=== PATIENT | male | born 2000 | race Caucasian/White ===

== ENCOUNTER 2020-07-02 01:51 | Emergency (ER) | payer SELFPAY ==
[2020-07-02 02:02] VITALS: BP 134/46; PULSE 130
--- NOTE | 2020-07-02 02:07 | EDM.PDOC ---
ED HPI GENERAL MEDICAL PROBLEM - General Chief Complaint: Upper Extremity Injury/Pain Stated Complaint: MED.CLEARANCE Time Seen by Provider: 07/02/20 02:00 - History of Present Illness INITIAL COMMENTS - FREE TEXT/NARRATIVE: History of present illness: [] This alert cooperative white male is in police custody in handcuffs. He is here for medical clearance because of swelling and apparent injury to his right hand. He says he punched a door. He denies any other symptoms. Review of systems: As per history of present illness and below otherwise all systems reviewed and negative. Past medical history: As per history of present illness and as reviewed below otherwise noncontributory. Surgical history: As per history of present illness and as reviewed below otherwise noncontributory. Social history: No reported history of drug or alcohol abuse. Family history: As per history of present illness and as reviewed below otherwise noncontributory. Physical exam: Constitutional - well developed, well-nourished and in no acute distress HEENT - normocephalic, no evidence of trauma - external nose and mouth normal - no mass in neck and no JVD - mucosae moist EYES - full EOM, PERRL, no icterus - no evidence of inflammation, injection, or drainage Respiratory - no respiratory distress, equal bilateral expansion Musculoskeletal welling and tenderness about the dorsal hand especially at the level of the distal fifth metacarpal. No gross deformity of long bones or joints - no tenderness, swelling or edema Neurologic - Alert and oriented times four - CN II-XII grossly intact - motor sensory and coordination symmetrically normal Psychiatric - appropriate mood and affect with normal thought content Hematologic - No petechiae or purpura - mucosa appropriate color and sclera not pale - normal nail bed color and refill Integument -minimal abrasions over the dorsum of the second digit and knee distal metacarpal level of the right hand otherwise no rash or evidence of trauma - normal turgor Diagnostics: [] Therapeutics: [] Impression: [] Plan: [] Definitive disposition and diagnosis as appropriate pending reevaluation and review of above. - Related Data Allergies Allergy/AdvReac Type Severity Reaction Status Date / Time Penicillins Allergy Can't Verified 07/02/20 02:03 Remember Home Meds: Home Meds . [No Known Home Meds] 01/12/15 [History] Past Medical History - Past Health History Medical/Surgical History: Denies Medical/Surgical History Review of Systems - Review of Systems Review Of Systems: Comprehensive ROS is negative, except as noted in HPI. ED EXAM, GENERAL - Physical Exam Exam: See Below Free Text/Narrative:: Physical exam is in the HPI Course - Vital Signs Text/Narrative:: X-rays negative for fracture. There is soft tissue swelling. The patient is able to ambulate without difficulty and does not seem to be a fall risk. Discharged in satisfactory condition. Last Recorded V/S: Last Vital Signs Temp 36.5 C 07/02/20 01:55 Pulse 130 H 07/02/20 01:55 Resp 16 07/02/20 01:55 BP 134/46 L 07/02/20 01:55 Pulse Ox 97 07/02/20 01:55 - Orders/Labs/Meds Orders: Active Orders 24 hr Category Date Time Status Hand Comp Min 3V Rt [CR] Stat Exams 07/02/20 02:04 Taken Departure - Departure Time of Disposition: 02:27 Disposition: Home, Self-Care 01 Condition: Good Clinical Impression: Contusion of right hand, initial encounter - Discharge Information Instructions: Hand Contusion Referrals: PCP,None [Primary Care Provider] - Forms: ED Department Discharge Additional Instructions: Rest ice elevate [facility] - Primary Care [address] [place] [address] [facility] [address] [place] [address] The following information is given to patients seen in the emergency department who are being discharged to home. This information is to outline your options for follow-up care. We provide all patients seen in our emergency department with a follow-up referral. The need for follow-up, as well as the timing and circumstances, are variable depending upon the specifics of your emergency department visit. If you don't have a primary care physician on staff, we will provide you with a referral. We always advise you to contact your personal physician following an emergency department visit to inform them of the circumstance of the visit and for follow-up with them and/or the need for any referrals to a consulting specialist. The emergency department will also refer you to a specialist when appropriate. This referral assures that you have the opportunity for follow-up care with a specialist. All of these measure are taken in an effort to provide you with optimal care, which includes your follow-up. Under all circumstances we always encourage you to contact your private physician who remains a resource for coordinating your care. When calling for follow-up care, please make the office aware that this follow-up is from your recent emergency room visit. If for any reason you are refused follow-up, please contact the [facility] Emergency Department at and asked to speak to the emergency department charge nurse. Sepsis Event Note (ED) - Evaluation Sepsis Screening Result: No Definite Risk - Focused Exam Vital Signs: Vital Signs Temp Pulse Resp BP Pulse Ox 07/02/20 01:55 36.5 C 130 H 16 134/46 L 97 - My Orders Last 24 Hours: My Active Orders 07/02/20 02:04 Hand Comp Min 3V Rt [CR] Stat - Assessment/Plan Last 24 Hours: My Active Orders 07/02/20 02:04 Hand Comp Min 3V Rt [CR] Stat
--- NOTE | 2020-07-02 02:43 | CR ---
Indication: Injury, punched wall Technique: Three views Comparison: None Findings: Bones: Alignment is normal. No fractures or bone lesions. Joint spaces: Unremarkable. Soft tissues: Mild dorsal soft tissue swelling. Dictated by Jake Brown MD @ Jul 02 2020 2:39AM Signed by Dr. Jake Brown @ Jul 02 2020 2:41AM
== END 2020-07-02 02:32 ==
LOC: MW.ED 01:51
DX: S60.221A Contusion of right hand, initial encounter (principal); Z88.0 Allergy status to penicillin; W22.8XXA Striking against or struck by other objects, initial encounter
CPT/HCPCS: 73130-26-RT; 73130-RT; 99282; 99283-25

== ENCOUNTER 2021-01-25 08:56 | Emergency (ER) | payer OTHER ==
[2021-01-25] MEDS ORDERED: Sodium Chloride 0.9% 10 ML Syringe FLUSH PRN (09:07)
[2021-01-25] MEDS ORDERED: Sodium Chloride 0.9% 1,000 ML IV ONE (09:07)
[2021-01-25] MEDS ORDERED: Sodium Chloride 0.9% 2.5 ML Syringe FLUSH PRN (09:07)
[2021-01-25 09:48] LABS: BLOOD UREA NITROGEN,BUN 14 mg/dL (7.0-18.0); CHLORIDE,CL 100 mmol/L (98-107); GLUCOSE RANDOM 139 mg/dL (74-106); POTASSIUM,K 4.1 mmol/L (3.5-5.1); SODIUM,NA 138 mmol/L (136-148)
--- NOTE | 2021-01-25 10:01 | CR ---
INDICATION: Syncope TECHNIQUE: Chest 1 view. COMPARISON: None FINDINGS: Cardiovascular and mediastinum: Heart size and vasculature are normal in caliber and appearance. Mediastinum is within normal limits. Lungs and pleural space: Lungs are clear. No sign of infiltrate or mass. No sign of pleural effusion. No pneumothorax. Bones and soft tissues: No significant findings. IMPRESSION: Unremarkable chest. Dictated by Adrien Lewis MD @ 01/25/2021 9:58:[address] Adrien Lewis @ Jan 25 2021 9:58AM
--- NOTE | 2021-01-25 10:13 | CT ---
INDICATION: Syncope. Head trauma. TECHNIQUE: CT head without contrast. COMPARISON: None. FINDINGS: CSF spaces: Within normal limits for age. Brain parenchyma and extra-axial spaces: Tiny subarachnoid hemorrhage suspected in the left medial frontal lobe sulcus visualized on series 201, image 22. No sign of hemorrhage elsewhere. No mass effect or midline shift. Skull base and calvarium: The visualized paranasal sinuses and mastoid air cells demonstrate no acute or significant findings. The visualized orbits are grossly unremarkable. No skull fractures. IMPRESSION: Findings suspicious for a tiny acute subarachnoid hemorrhage in the medial left frontal sulci. Remainder of the exam is unremarkable. Please note that all CT scans at this facility use dose modulation, iterative reconstruction, and/or weight-based dosing when appropriate to reduce radiation dose to as low as reasonably achievable. Dictated by Gray Jones MD @ 01/25/2021 10:12:[address] Gray Jones @ Jan 25 2021 10:12AM
--- NOTE | 2021-01-25 10:32 | CT ---
INDICATION: Syncope. Head trauma. TECHNIQUE: CT cervical spine without contrast. COMPARISON: None FINDINGS: Vertebrae: Alignment is normal. There is a nondisplaced lucent line in the lateral left lamina at C2 visualized on series 301, image 37. No other osseous abnormality evident. Discs and facet joints: Disc spaces and facets are within normal limits. Extraspinal findings: Prevertebral soft tissues, visualized airway, and visualized lungs are unremarkable. IMPRESSION: Questionable acute nondisplaced fracture versus nutrient vessel in the lateral left lamina at C2. Remainder the exam is unremarkable. If this is a fracture it would be considered stable. No other sign of acute injury. Please note that all CT scans at this facility use dose modulation, iterative reconstruction, and/or weight-based dosing when appropriate to reduce radiation dose to as low as reasonably achievable. Dictated by Gray Jones MD @ 01/25/2021 10:32:[address] Gray Jones @ Jan 25 2021 10:32AM
--- NOTE | 2021-01-25 12:14 | EDM.PDOC ---
ED HPI GENERAL MEDICAL PROBLEM - General Chief Complaint: Syncope Stated Complaint: SYNCPOY EPISODE Time Seen by Provider: 01/25/21 09:02 - History of Present Illness INITIAL COMMENTS - FREE TEXT/NARRATIVE: HISTORY AND PHYSICAL: History of present illness: This is a healthy 20-year-old gentleman who presents to the ER today by EMS secondary to a syncopal episode that occurred while he was at the bank. 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 Per EMS, the patient had a syncopal episode that was witnessed at the bank and hit his head both on the counter and then on the floor when he fell. Patient denies any recent fevers, shakes, chills, nausea, vomiting, diarrhea, dysuria, frequency, urgency, chest pain, shortness of breath. Patient reports that he has had body aches and a headache for approximately 2 to 3 days. Patient reports that the headache is been gradual in onset and was not thunderclap and is not the worst headache that he is ever had. Patient denies any recent URI symptoms. Patient reports he has not had a Covid vaccine. Patient currently reports he has a mild headache and some pain to his neck that is mild in nature. Patient denies any weakness of his upper or lower extremities. Patient has any double vision or blurred vision. Patient denies any associated chest pain, shortness of breath, nausea, pain rating to his arms or back, diaphoresis. Patient reports that he has had episodes of palpitations in the past. Patient reports that he had an episode of syncope approximately month and half ago while he was at work and had a " brief" evaluation. Patient reports that he did see a chiropractor shortly after his initial syncopal episode. Patient denies any recent neck manipul ation. Review of systems: As per history of present illness and below otherwise all systems reviewed and negative. Past medical history: As per history of present illness and as reviewed below otherwise noncontributory. Surgical history: As per history of present illness and as reviewed below otherwise noncontributory. Social history: No reported history of drug abuse. Family history: As per history of present illness and as reviewed below otherwise noncontributory. Physical exam: This patient was seen and evaluated during the 2019 SARS-CoV-2 novel coronavirus pandemic period. Community viral transmission is ongoing at time of this encounter and the emergency department is operating under pandemic response procedures. Constitutional: Patient is oriented to person, place, and time. Appears well- developed and well-nourished. No distress. HEENT: Moist mucous membranes, right swollen tender submandibular lymphadenopathy. Right pharynx erythematous with white exudate. No stridor. Head: Normocephalic and atraumatic. Patient with some mild tenderness palpation to his posterior occiput. Patient does have some mild tenderness palpation to his upper lateral left neck. Eyes: Right eye exhibits no discharge. Left eye exhibits no discharge. No scleral icterus. Normal funduscopic exam Neck: Normal range of motion. No tracheal deviation present. C-collar placed after CT report obtained. Cardiovascular: Normal rate and regular rhythm. Pulmonary: Effort normal, no respiratory distress. Abdominal: No distention Musculoskeletal: Normal range of motion Neurologic: Alert and oriented to person, place and time. Skin: [place], warm and dry. Psychiatric: Normal mood and affect. Behavior is normal. Judgment and thought content normal. Nursing note and vital signs have been reviewed Diagnostics: CT head reveals findings suspicious for tiny acute subarachnoid hemorrhage in the medial left frontal sulci. Remainder the exam is unremarkable. CT cervical spine reveals questionable acute nondisplaced fracture versus nutrient vessel in the left lateral lamina at C2. Remainder of exam is unremarkable. If this is a fracture would be considered stable. No other signs of acute injury. EKG: As interpreted by ER physician: Bety: Nonspecific ST-T wave abnormalities Normal axis No evidence of ST elevation [place] Normal sinus rhythm heart rate of 63 EKG date January 25, 2021 9 AM CBC, CMP within normal limits. Covid test: Patient adamantly refuses Therapeutics: C-collar placed. Assessment and plan: 20-year-old gentleman who presents ER today with a syncopal episode. Patient has had 1 prior syncopal episode that appears to have not been fully worked up or evaluated per the patient's report. Given the patient's abnormal CT scan findings of both a suspicious tiny acute subarachnoid hemorrhage and a questionable acute nondisplaced fracture, I have spoken to Dr. Parikh who is our surgery doctor on-call and at this time he does not feel comfortable with patient being admitted here at [place] secondary to no accessibility to neurosurgery for consultation and evaluation of the abnormal CT scan findings. Patient also with what appears to be clinical strep pharyngitis. Patient has a temperature of 101.2 in the ED with a swollen right submandibular lymph node and exudate in his right pharynx. Patient will be given a dose of Rocephin IV in [facility] ED as well as acetaminophen 650 mg p.o. A strep screen will be ordered as well prior to transfer. I have discussed the case with Dr. Burgess at [facility] and at this time they are on diversion and do not have bed availability. I have discussed the case with Dr. addie Mathias at who has agreed to assist with transfer this patient for further evaluation of syncopal episode and abnormal traumatic findings. I have discussed the results with the patient as well as his father and family and they are in agreement currently with transfer. Dr. Grant has requested that we obtain a CTA prior to transfer to determine if patient might have any aneurysmal abnormalities as this might need to be transferred to [place]. Critical Care: The high probability of sudden, clinically significant deterioration in the patient's condition required the highest level of my preparedness to intervene urgently. The services I provided to this patient were to treat and/or prevent clinically significant deterioration. Services included the following: chart data review, reviewing nursing notes and/or old charts, documentation time, [employer] consultant collaboration regarding findings and treatment options, medication orders and management, direct patient care, vital sign assessments and ordering, interpreting and reviewing diagnostic studies/lab tests. Aggregate critical care time includes only time during which I was engaged inwork directly related to the patient's care, as described above, whether at the bedside or elsewhere in the Emergency Department. It did not include time spent performing other reported procedures or the services of residents, students, nurses or physician assistants. Critical Care Time: 35 minutes Definitive disposition and diagnosis as appropriate pending reevaluation and review of above. headache Pain Score (Numeric/FACES): 4 - Related Data Allergies Allergy/AdvReac Type Severity Reaction Status Date / Time Penicillins Allergy Can't Verified 01/25/21 09:01 Remember Home Meds: Home Meds . [No Known Home Meds] 01/12/15 [History] Past Medical History - Past Health History Medical/Surgical History: Denies Medical/Surgical History HEENT History: Reports: None Cardiovascular History: Reports: None Respiratory History: Reports: None Gastrointestinal History: Reports: None Genitourinary History: Reports: None Musculoskeletal History: Reports: None Neurological History: Reports: None Psychiatric History: Reports: None Endocrine/Metabolic History: Reports: None Hematologic History: Reports: None Immunologic History: Reports: None Oncologic (Cancer) History: Reports: None Dermatologic History: Reports: None - Infectious Disease History Infectious Disease History: Reports: None - Past Surgical History Head Surgeries/Procedures: Reports: None HEENT Surgical History: Reports: None Cardiovascular Surgical History: Reports: None Respiratory Surgical History: Reports: None GI Surgical History: Reports: None Male Surgical History: Reports: None Endocrine Surgical History: Reports: None Neurological Surgical History: Reports: None Musculoskeletal Surgical History: Reports: None Oncologic Surgical History: Reports: None Dermatological Surgical History: Reports: None Social & Family History - Family History Family Medical History: No Pertinent Family History - Tobacco Use Tobacco Use Status *Q: Never Tobacco User Second Hand Smoke Exposure: No - Caffeine Use Caffeine Use: Reports: None - Recreational Drug Use Recreational Drug Use: No ED ROS GENERAL - Review of Systems Review Of Systems: See Below ED EXAM, GENERAL - Physical Exam Exam: See Below Course - Vital Signs Last Recorded V/S: Last Vital Signs Temp 101.7 F H 01/25/21 16:07 Pulse 80 01/25/21 13:04 Resp 17 01/25/21 13:04 BP 118/65 01/25/21 13:04 Pulse Ox 95 01/25/21 13:04 - Orders/Labs/Meds Orders: Active Orders 24 hr Category Date Time Status Saline Lock Insert [OM.PC] Stat Oth 01/25/21 09:07 Ordered Labs: Laboratory Tests 01/25/21 01/25/21 01/25/21 Range/Units 09:05 09:05 12:02 WBC 10.58 (4.0-11.0) K/uL RBC 4.65 (4.50-5.90) M/uL Hgb 14.9 (13.0-17.0) g/dL Hct 43.5 (38.0-50.0) % MCV 93.5 (80.0-98.0) fL MCH 32.0 (27.0-32.0) pg MCHC 34.3 (31.0-37.0) g/dL RDW Std Deviation 47.0 (28.0-62.0) fl RDW Coeff of Raymond 14 (11.0-15.0) % Plt Count 231 (150-400) K/uL MPV 10.50 (7.40-12.00) fL Neut % (Auto) 73.4 (48.0-80.0) % Lymph % (Auto) 12.5 L (16.0-40.0) % [place] % (Auto) 12.7 (0.0-15.0) % Eos % (Auto) 1.1 (0.0-7.0) % Baso % (Auto) 0.3 (0.0-1.5) % Neut # (Auto) 7.8 H (1.4-5.7) K/uL Lymph # (Auto) 1.3 (0.6-2.4) K/uL [place] # (Auto) 1.3 H (0.0-0.8) K/uL Eos # (Auto) 0.1 (0.0-0.7) K/uL Baso # (Auto) 0.0 (0.0-0.1) K/uL Nucleated RBC % 0.0 /100WBC Nucleated RBCs # 0 K/uL Sodium 138 (136-148) mmol/L Potassium 4.1 (3.5-5.1) mmol/L Chloride 100 (98-107) mmol/L Carbon Dioxide 28.0 (21.0-32.0) mmol/L BUN 14 (7.0-18.0) mg/dL Creatinine 1.2 (0.8-1.3) mg/dL Est Cr Clr Drug Dosing 96.02 mL/min Estimated GFR (MDRD) > 60.0 ml/min Glucose 139 H (74-106) mg/dL Calcium 9.0 (8.5-10.1) mg/dL Total Bilirubin 0.5 (0.2-1.0) mg/dL AST 19 (15-37) IU/L ALT 15 (14-63) IU/L Alkaline Phosphatase 75 (46-116) U/L Troponin I < 0.050 (0.000-0.056) ng/mL Total Protein 7.9 (6.4-8.2) g/dL Albumin 3.8 (3.4-5.0) g/dL Globulin 4.1 H (2.6-4.0) g/dL Albumin/Globulin Ratio 0.9 (0.9-1.6) Urine Color YELLOW Urine Appearance CLEAR Urine pH 7.0 (5.0-8.0) Ur Specific [place] 1.010 (1.001-1.035) Urine Protein NEGATIVE (NEGATIVE) mg/dL Urine Glucose (UA) NEGATIVE (NEGATIVE) mg/dL Urine Ketones NEGATIVE (NEGATIVE) mg/dL Urine Occult Blood NEGATIVE (NEGATIVE) Urine Nitrite NEGATIVE (NEGATIVE) Urine Bilirubin NEGATIVE (NEGATIVE) Urine Urobilinogen 0.2 (<2.0) EU/dL Ur Leukocyte Esterase NEGATIVE (NEGATIVE) Group A Strep (PCR) (NOT DETECT) 01/25/21 Range/Units 15:50 WBC (4.0-11.0) K/uL RBC (4.50-5.90) M/uL Hgb (13.0-17.0) g/dL Hct (38.0-50.0) % MCV (80.0-98.0) fL MCH (27.0-32.0) pg MCHC (31.0-37.0) g/dL RDW Std Deviation (28.0-62.0) fl RDW Coeff of Raymond (11.0-15.0) % Plt Count (150-400) K/uL MPV (7.40-12.00) fL Neut % (Auto) (48.0-80.0) % Lymph % (Auto) (16.0-40.0) % [place] % (Auto) (0.0-15.0) % Eos % (Auto) (0.0-7.0) % Baso % (Auto) (0.0-1.5) % Neut # (Auto) (1.4-5.7) K/uL Lymph # (Auto) (0.6-2.4) K/uL [place] # (Auto) (0.0-0.8) K/uL Eos # (Auto) (0.0-0.7) K/uL Baso # (Auto) (0.0-0.1) K/uL Nucleated RBC % /100WBC Nucleated RBCs # K/uL Sodium (136-148) mmol/L Potassium (3.5-5.1) mmol/L Chloride (98-107) mmol/L Carbon Dioxide (21.0-32.0) mmol/L BUN (7.0-18.0) mg/dL Creatinine (0.8-1.3) mg/dL Est Cr Clr Drug Dosing mL/min Estimated GFR (MDRD) ml/min Glucose (74-106) mg/dL Calcium (8.5-10.1) mg/dL Total Bilirubin (0.2-1.0) mg/dL AST (15-37) IU/L ALT (14-63) IU/L Alkaline Phosphatase (46-116) U/L Troponin I (0.000-0.056) ng/mL Total Protein (6.4-8.2) g/dL Albumin (3.4-5.0) g/dL Globulin (2.6-4.0) g/dL Albumin/Globulin Ratio (0.9-1.6) Urine Color Urine Appearance Urine pH (5.0-8.0) Ur Specific [place] (1.001-1.035) Urine Protein (NEGATIVE) mg/dL Urine Glucose (UA) (NEGATIVE) mg/dL Urine Ketones (NEGATIVE) mg/dL Urine Occult Blood (NEGATIVE) Urine Nitrite (NEGATIVE) Urine Bilirubin (NEGATIVE) Urine Urobilinogen (<2.0) EU/dL Ur Leukocyte Esterase (NEGATIVE) Group A Strep (PCR) NOT DETECTED (NOT DETECT) Meds: Medications Discontinued Medications Generic Name Dose Route Start Last Admin Trade Name Freq PRN Reason Stop Dose Admin Acetaminophen 650 mg 01/25/21 15:53 01/25/21 16:07 Acetaminophen 325 Mg Tab PO 01/25/21 15:54 650 mg NOW ONE Administration Sodium Chloride 1,000 mls @ 999 mls/hr 01/25/21 09:07 01/25/21 09:22 Normal Saline IV 01/25/21 10:07 999 mls/hr .Bolus ONE Administration Ceftriaxone Sodium/Dextrose 1 50 mls @ 100 mls/hr 01/25/21 15:53 01/25/21 16: 05 gm/ Premix IV 01/25/21 16:22 100 mls/hr ONETIME ONE Administration Iopamidol 100 ml 01/25/21 17:05 01/25/21 17:05 Iopamidol 755 Mg/Ml 500 Ml Multipack Bottle IVPUSH 01/25/21 17:06 100 ml ONETIME STA Administration Ondansetron HCl 4 mg 01/25/21 16:09 01/25/21 16:33 Ondansetron 4 Mg/2 Ml Sdv IVPUSH 01/25/21 16:10 4 mg ONETIME ONE Administration Sodium Chloride 10 ml 01/25/21 09:07 01/25/21 09:22 Sodium Chloride 0.9% 10 Ml Syringe FLUSH 10 ml ASDIRECTED PRN Administration Keep Vein Open Sodium Chloride 2.5 ml 01/25/21 09:07 01/25/21 09:22 Sodium Chloride 0.9% 2.5 Ml Syringe FLUSH 2.5 ml ASDIRECTED PRN Administration Keep Vein Open Departure - Departure Time of Disposition: 15:56 Disposition: DC/Tfer to Acute Hospital 02 Condition: Good Clinical Impression: Subarachnoid hemorrhage, Strep pharyngitis Cervical spine fracture Qualifiers: Encounter type: initial encounter Cervical vertebra fracture level: C2 Fracture morphology: other fracture Fracture alignment: nondisplaced - Discharge Information Referrals: PCP,None [Primary Care Provider] - Forms: ED Department Discharge - My Orders Last 24 Hours: My Active Orders 01/25/21 09:07 Saline Lock Insert [OM.PC] Stat - Assessment/Plan Last 24 Hours: My Active Orders 01/25/21 09:07 Saline Lock Insert [OM.PC] Stat
[2021-01-25 13:05] VITALS: BP 118/65; PULSE 80
--- NOTE | 2021-01-25 15:08 | CT ---
INDICATION: Headache, syncopal episode. TECHNIQUE: After standard noncontrast head CT, high resolution axial CT images acquired through the head and neck following rapid intravenous administration of iodinated contrast. Multiplanar MIPS of cranial and cervical vasculature performed. FINDINGS: Noncontrast head CT: There is no intracranial hemorrhage or fluid collection. The centeno-white matter differentiation is maintained. The ventricles are of normal morphology. The basal cisterns are clear. CTA head: There is normal filling of the intracranial vasculature; i.e. there is no large vessel occlusion or intracranial stenosis. There is no cerebral aneurysm or evidence for vascular malformation. CTA neck: Both carotid and vertebral arteries have a normal course and caliber. There is no stenosis or dissection. The tonsils are enlarged bilaterally and have a striated enhancing appearance. There are multiple enlarged cervical lymph nodes. The largest is noted on the right measuring 4 x 2 centimeters craniocaudally. The cervical spine is in normal alignment. The lung apices are clear. IMPRESSION: 1. No acute intracranial abnormality at CT/CTA. 2. No carotid or vertebral artery stenosis or dissection. 3. Tonsillitis and cervical lymphadenopathy with a markedly enlarged lymph node on the right measuring up to 4 cm. Given the markedly enlarged size, recommend follow-up to document resolution / confirm that this is reactive. Discussed with Dr. Albert at 3:00 p.m. on 01/25/2021. Ponce Collier MD [facility] Please note that all CT scans at this facility use dose modulation, iterative reconstruction, and/or weight-based dosing when appropriate to reduce radiation dose to as low as reasonably achievable. Dictated by Ponce Collier MD @ 01/25/2021 3:07:[address] Ponce Collier @ Jan 25 2021 3:07PM
[2021-01-25] MEDS ORDERED: Acetaminophen 325 MG Tab PO ONE (15:53)
[2021-01-25] MEDS ORDERED: cefTRIAXone 1 GM in Premix Bag 1 BAG IV ONE (15:53)
[2021-01-25] MEDS ORDERED: Ondansetron 4 MG/2 ML SDV IVPUSH ONE (16:09)
[2021-01-25] MEDS ORDERED: Iopamidol 755 MG/ML 500 ML Multipack Bottle IVPUSH STA (17:05)
== END 2021-01-25 17:00 ==
LOC: MW.ED 08:56
DX: S06.6X0A Traumatic subarachnoid hemorrhage without loss of consciousness, initial encounter (principal); S12.191A Other nondisplaced fracture of second cervical vertebra, initial encounter for closed fracture; J02.0 Streptococcal pharyngitis; R55 Syncope and collapse; Z88.0 Allergy status to penicillin; X58.XXXA Exposure to other specified factors, initial encounter
CPT/HCPCS: 70450; 70496; 70498; 71045; 72125; 80053; 81003; 84484; 85025; 87651; 93005; 96374; 96375; 99285; A9270; J0696; J2405; J7030; Q9967